=== PATIENT | female | born 1950 | race Caucasian/White ===

== ENCOUNTER 2018-11-04 08:29 | Outpatient (CLI) | payer MEDICARE | END 2018-11-04 08:30 | disposition home or self-care (01) | LOC: BICMAMMO 08:29 | PROVIDERS: ATTEND Obstetrics & Gynecology | DX: Z12.31 Encounter for screening mammogram for malignant neoplasm of breast (principal); R92.1 Mammographic calcification found on diagnostic imaging of breast; Z85.41 Personal history of malignant neoplasm of cervix uteri | CPT/HCPCS: 77063; 77067 ==

== ENCOUNTER 2019-03-03 13:02 | Outpatient (CLI) | payer MEDICARE ==
--- NOTE | 2019-03-03 13:58 | ULT ---
Exam: Bilateral renal ultrasound HISTORY: Possible renal calculi. Hyperparathyroidism. COMPARISON: None FINDINGS: Right kidney: Exophytic hypoechoic focus in the mid right renal cortex measuring 2.3 X 2.3 x 1.9 cm i s incompletely evaluated. The possibility of a solid renal mass cannot be excluded. No hydronephrosis. Ill-defined anechoic focus in the right renal pelvis may represent a parapelvic cyst, measuring 1.2 x 1.2 x 1.3 cm. No hydronephrosis Right kidney measurements: 9.6 x 4.9 x 4.7 cm. Left kidney: Normal cortical echotexture. No hydronephrosis Left kidney measurements 5.0 x 5.3 x 10.4 cm. Urinary bladder: Normal mucosa. IMPRESSION: 1. No hydronephrosis 2. Hypoechoic exophytic lesion emanating from the right kidney, possibly solid mass. Better interroga tion with abdomen MRI or renal mass protocol CT is recommended. CODE T
--- NOTE | 2019-03-03 15:30 | ULT ---
THYROID ULTRASOUND: Date: 03/03/19 INDICATION: Hypothyroidism. FINDINGS: Both lobes of the thyroid are homogeneous. Both lobes have normal size and appearance. There is no ev idence of thyroid mass or nodule. Right lobe measures 3.6 x 1.0 x 1.0 cm. Left lobe measures 3.5 x 1.0 x 1.0 cm. IMPRESSION: Unremarkable thyroid ultrasound. POS: [facility]
== END 2019-03-03 13:03 | disposition home or self-care (01) ==
LOC: BICULT 13:02
PROVIDERS: ATTEND Family Medicine
DX: E03.9 Hypothyroidism, unspecified (principal); E21.3 Hyperparathyroidism, unspecified; N28.89 Other specified disorders of kidney and ureter
CPT/HCPCS: 76536; 76770

== ENCOUNTER 2019-03-18 08:58 | Outpatient (CLI) | payer MEDICARE ==
[2019-03-18] MEDS ORDERED: Gadobenate Dimeglumine 529 MG/1 ML (20ML VIAL) ONE (09:00)
--- NOTE | 2019-03-18 12:10 | MRI ---
EXAM: MRI of the abdomen without and with contrast COMPARISON: Renal ultrasound 03/03/2019 HISTORY: Right renal mass seen on ultrasound TECHNIQUE: Multiplanar multi sequence MR images were taken of the abdomen without and with IV contras t. An MRCP was performed. FINDINGS: Liver: Small nonenhancing foci of high T2 signal in the liver measuring up to 1.1 cm in size represen t cysts. No intrahepatic ductal dilatation. Normal signal without dropout on out of phase images. Gallbladder: No filling defects or gallbladder wall thickening. Common bile duct: Normal caliber without filling defects Adrenal glands: Unremarkable. Kidneys: A well-circumscribed nonenhancing focus of high T2 signal in the midportion of the right kid yessy measuring 2.2 cm in size represents a simple cyst. No left renal abnormality. Spleen: Unremarkable. Pancreas: Unremarkable. Retroperitoneum: No enlarged lymph nodes Bones: No marrow signal abnormality. IMPRESSION: 1. Right renal cyst 2. Hepatic cysts
== END 2019-03-18 08:59 | disposition home or self-care (01) ==
LOC: SCSMRI 08:58
PROVIDERS: ATTEND Family Medicine
DX: R19.00 Intra-abdominal and pelvic swelling, mass and lump, unspecified site (principal); N28.1 Cyst of kidney, acquired; K76.89 Other specified diseases of liver
CPT/HCPCS: 74183; A9577

== ENCOUNTER 2019-10-07 07:11 | Emergency (ER) | payer MEDICARE ==
--- NOTE | 2019-10-07 07:42 | RAD ---
Radiograph right leg tibia-fibula 2 views: DATE: 10/07/2019 HISTORY: 69-year-old female with right leg pain FINDINGS: No fracture of the tibia or fibula identified. Focal osteopenia of lateral malleolus, incompletely ev aluated. IMPRESSION: No fracture.
--- NOTE | 2019-10-07 07:44 | RAD ---
Exam: XR Femur Rt 2 View STANDARD HISTORY: Right lower extremity pain. COMPARISON: None FINDINGS: Postsurgical changes related to internal fixation proximal right femur are noted. A intramedullary ro d with distal interlocking screws and dynamic compression screw transfix the proximal right femur. No hardware complication is seen. No fracture or dislocation is identified. No other acute osseous ab normality. IMPRESSION: No acute osseous abnormality is identified.
--- NOTE | 2019-10-07 08:18 | ULT ---
ULTRASOUND DOPPLER DUPLEX VENOUS RIGHT LOWER EXTREMITY: DATE: 10/07/2019 HISTORY: 69-year-old female with right lower extremity pain. TECHNIQUE: Grayscale, color-flow, and spectral analysis, of major veins of right lower extremity. FINDINGS: There is demonstration of blood flow with normal compressibility, of the right common femoral, profun da femoral, greater saphenous, femoral, popliteal, and posterior tibial, veins. IMPRESSION: Negative. No deep venous thrombosis of right lower extremity.
== END 2019-10-07 09:00 | disposition home or self-care (01) ==
LOC: ERS 07:11
DX: M79.661 Pain in right lower leg (principal); M25.561 Pain in right knee; R60.0 Localized edema

== ENCOUNTER 2020-01-06 13:51 | Outpatient (CLI) | payer MEDICARE ==
--- NOTE | 2020-01-06 16:04 | MMO ---
Bilateral MAMMO Bilat Screen [facility]. CLINICAL HISTORY: Patient is 69 years old and is seen for screening. The patient has no family history of breast cancer. The patient has a history of cervical cancer. VIEWS: The views performed were: bilateral craniocaudal with tomosynthesis and bilateral mediolateral oblique with tomosynthesis. FILMS COMPARED: The present examination has been compared to prior imaging studies performed at [facility] on 11/21/2014, 01/03/2016, 01/27/2017 and 11/04/2018. This study has been interpreted with the assistance of computer-aided detection. MAMMOGRAM FINDINGS: There are scattered fibroglandular densities. Benign calcifications are noted bilaterally. There are no suspicious masses, suspicious calcifications, or new areas of architectural distortion. IMPRESSION: THERE IS NO MAMMOGRAPHIC EVIDENCE OF MALIGNANCY. A ROUTINE FOLLOW-UP MAMMOGRAM IN 1 YEAR IS RECOMMENDED. THE RESULTS OF THIS EXAM WERE SENT TO THE PATIENT. ACR BI-RADS Category 2 - Benign finding MAMMOGRAPHY NOTE: 1. A negative mammogram report should not delay a biopsy if a dominant of clinically suspicious mass is present. 2. Approximately 10% to 15% of breast cancers are not detected by mammography. 3. Adenosis and dense breasts may obscure an underlying neoplasm. Reported by: GABO MOYER MD Electonically Signed: [id number]
== END 2020-01-06 13:52 | disposition home or self-care (01) ==
LOC: BICMAMMO 13:51
PROVIDERS: ATTEND Family Medicine
DX: Z12.31 Encounter for screening mammogram for malignant neoplasm of breast (principal); Z85.41 Personal history of malignant neoplasm of cervix uteri
CPT/HCPCS: 77063; 77067

== ENCOUNTER 2020-07-14 13:28 | Outpatient (CLI) | payer MEDICARE ==
--- NOTE | 2020-07-14 14:51 | ULT ---
THYROID ULTRASOUND INDICATION: Hyperparathyroidism TECHNIQUE: Grayscale and color Doppler images were obtained of the thyroid gland. COMPARISON: Prior exam dated March 03, 2019 FINDINGS: Right thyroid lobe: The right thyroid lobe measures 3.6 x 0.7 x 0.9 cm. Thyroid isthmus: The thyroid isthmus measures 0.21 cm. Left thyroid lobe: The left thyroid lobe measures 3.5 x 1.5 x 0.96 cm. IMPRESSION: 1. No focal thyroid lesion demonstrated.
--- NOTE | 2020-07-14 14:53 | ULT ---
BILATERAL CAROTID DUPLEX ULTRASOUND: HISTORY: Syncope TECHNIQUE: Grayscale, color-flow and spectral Doppler ultrasound imaging of the extracranial carotid artery syst ems and vertebral arteries was performed bilaterally. FINDINGS: There is mild atherosclerotic plaque involving the proximal ICAs and distal left CCA. The peak systolic velocity in the right ICA measures 91.0 cm/s. The peak systolic velocity in the ri ght CCA measures 98.2 cm/s. The peak systolic velocity in the left ICA measures 96.2 cm/s. The peak systolic velocity in the l eft CCA measures 101.0 cm/s. The right IC/CC ratio is0.93. The left IC/CC ratio is 0.95. Vertebral flow: antegrade, bilaterally. . IMPRESSION: No hemodynamically significant stenosis of Both ICAs.
== END 2020-07-14 13:29 | disposition home or self-care (01) ==
LOC: ULT 13:28 → BICULT 13:29
PROVIDERS: ATTEND Family Medicine
DX: E21.3 Hyperparathyroidism, unspecified (principal); R55 Syncope and collapse; I07.1 Rheumatic tricuspid insufficiency
CPT/HCPCS: 76536; 93306; 93880

== ENCOUNTER 2020-08-14 08:19 | Outpatient (CLI) | payer MEDICARE ==
--- NOTE | 2020-08-14 13:16 | NM ---
Radionucleotide parathyroid scan with SPECT imaging HISTORY: Hyperthyroidism. FINDINGS: Physiologic uptake of radiotracer within the head and neck. Submandibular glands are somewh at prominent. Delayed images show mild to moderate persistent uptake in the thyroid gland. No abnormal areas radiotracer uptake are apparent near the thyroid bed or in the upper mediastinum. IMPRESSION : No scintigraphic evidence of parathyroid adenoma.
== END 2020-08-14 08:20 | disposition home or self-care (01) ==
LOC: NM 08:19
PROVIDERS: ATTEND Family Medicine
DX: E21.3 Hyperparathyroidism, unspecified (principal)
CPT/HCPCS: 78072; A9500

== ENCOUNTER 2020-10-10 22:13 | Inpatient (IN) | payer MEDICARE ==
[~2020-10-10 22:13] MED LIST: Iopamidol-370 76% 500 ML 1 ML ONE
[2020-10-10] MEDS ORDERED: Acetaminophen 500 MG TAB ONE (22:29)
[2020-10-10 22:59] LABS: Hemoglobin 13.3 g/dL (12.0-16.0); Mean Corpuscular HGB CONC 33.5 g/dL (32.0-36.0); Mean Corpuscular Hemoglobin 31.6 pg (27.0-31.0); Mean Corpuscular Volume 94.4 fL (78.0-98.0); Mean Platelet Volume 9.3 fL (7.4-10.4); Platelet Count 130 thou/uL (130-400); RBC Distribution Width 13.5 % (11.5-14.5); Red Blood Cell (RBC) Count 4.22 mill/uL (4.20-5.40); White Blood Cell (WBC) Count 8.4 thou/uL (4.8-10.8)
[2020-10-10 23:03] LABS: Bacteria/HPF 1+ HPF (None Seen); Bilirubin Negative (Negative); Blood, Urine Negative (Negative); Clarity Clear (Clear); Glucose, Urine (Dipstick) Normal (Negative); Ketone, Urine Negative (Negative); Leukocyte 25 Leu/uL (Negative); Nitrite 2+ (Negative); Protein, Urine (Dipstick) Negative (Neg-Trace); RBC/HPF 0-3 HPF (0-3); Specific Gravity, Urine 1.014 (1.002-1.036); Urobilinogen Normal mg/dL (Less than 2); WBC/HPF 0-3 HPF (0-3); pH, Urine 5.5 (5.0-9.0)
[2020-10-10] MEDS ORDERED: Morphine 4 MG/ML VIAL ONE (23:06)
[2020-10-10] MEDS ORDERED: Ondansetron PF 4 MG/2 ML Vial ONE (23:06)
[2020-10-10 23:14] LABS: Band 17 % (5-11); Lymphocytes 13 % (21-51); MDiff Complete? YES; Monocytes 3 % (0-10); Neutrophil 67 % (42-75)
[2020-10-10 23:16] LABS: ALT (SGPT) 18 U/L (8-55); AST (SGOT) 12 U/L (5-34); Albumin 3.9 g/dL (3.4-4.8); Alkaline Phosphatase 52 U/L (40-110); Anion Gap 18 mmol/L (10-20); BUN (Urea Nitrogen) 19 mg/dL (9.8-20.1); Bilirubin, Total 0.7 mg/dL (0.2-1.2); Calc. Creatinine Clearance 0 mL/min (70-130); Calcium 8.4 mg/dL (7.8-10.44); Carbon Dioxide 21 mmol/L (23-31); Chloride 105 mmol/L (98-107); Globulin 2.5 g/dL (2.4-3.5); Glucose 105 mg/dL (83-110); Potassium 3.9 mmol/L (3.5-5.1); Protein, Total 6.4 g/dL (6.0-8.3); Sodium 140 mmol/L (136-145)
[2020-10-11] MEDS ORDERED: cefTRIAXone\\ROCEPHIN 2 GM VIAL ONE (00:34)
[2020-10-11] MEDS ORDERED: Vancomycin 1 GM/200 ML BAG ONE (01:50)
[2020-10-11] MEDS ORDERED: Ondansetron PF 4 MG/2 ML Vial IVP PRN (02:31)
[2020-10-11] MEDS ORDERED: Ondansetron ODT 4 MG TAB PO PRN (02:31)
[2020-10-11] MEDS ORDERED: Acetaminophen 325 MG TAB PO PRN (02:31)
[2020-10-11] MEDS ORDERED: Piperacillin/Tazobactam 3.375 GM in Sodium Chloride 0.9% 100 ML IVPB SCH (03:30)
--- NOTE | 2020-10-11 03:49 | HP ---
PRIMARY CARE PHYSICIAN: Dr. Bret Burnett. CHIEF COMPLAINT: Right flank pain. HISTORY OF PRESENT ILLNESS: The patient is a 70-year-old female with a past medical history significant for shingles and postherpetic neuralgia, who presents to the emergency department for the above complaint. The patient reports the acute onset of right flank plain described as sharp, radiating to her mid abdomen, constant, exacerbated and relieved by nothing. She reports associated nausea, vomiting, and chills. She denies hemoptysis, hematochezia/melena. She reports that she has been battling shingles, which are now healing, lesions located to the left back, breast, and chest wall. She has severe, postherpetic neuralgia, and she is taking gabapentin daily for this. She denies any chest pain, heart palpitations, or lightheadedness. She denies any cough, shortness of breath, or wheezing. She denies any dysuria or hematuria. In the ER, the patient presented febrile with a temperature of 101.1 Fahrenheit with normal blood pressure, pulse, respirations, and SpO2 saturation. UA showed 2+ nitrites, 25 leukocyte esterase, and 1+ bacteria. Lactic acid was 2.9, repeat was 4.0. WBC is 8.4. CT abdomen and pelvis, dictation is pending, however, according to ER documentation, the radiologist reported that there is stranding around the right kidney along with a hyperdense lesion that appears more dense than on previous exam in 2019. Concern for hemorrhagic versus infected cyst. The patient was given vancomycin and Rocephin IVPB, along with 2 L normal saline, Tylenol, morphine, and Zofran. She will be admitted to the floor for further evaluation. PAST MEDICAL HISTORY: 1. Shingles. 2. Postherpetic neuralgia. 3. Cervical cancer, treated with surgery. PAST SURGICAL HISTORY: 1. Right leg surgery. 2. Appendectomy. 3. Cholecystectomy. 4. Hysterectomy. SOCIAL HISTORY: She lives with her family. She has no history of smoking, illicit drug use, and drinks alcohol socially. She works as an budget accountant. She walks independently. FAMILY HISTORY: Noncontributory to this case. ALLERGIES: NO KNOWN DRUG ALLERGIES. HOME MEDICATION: Gabapentin 1800 mg p.o. q. day. REVIEW OF SYSTEMS: All review of systems are negative unless otherwise stated in HPI. PHYSICAL EXAMINATION: VITAL SIGNS: Temperature 100.2, BP 104/60, pulse 92, respirations 20, and 96% on room air. CONSTITUTIONAL: Presented febrile, nontoxic in appearance, uncomfortable. HEAD: Atraumatic And normocephalic. EYES: PERRLA. Extraocular muscles intact. Sclerae nonicteric. ENT: Oropharynx is clear. Tacky mucous membranes. No oral lesions. Uvula midline. NECK: Full range of motion. No cervical spinous tenderness. Neck is supple. Trachea midline. RESPIRATORY/CHEST: Respirations even and unlabored. Clear to auscultation. No rhonchi, wheezes, or rales. CARDIOVASCULAR: S1, S2 appreciated. No murmurs, rubs, or gallops. ABDOMEN: Diffusely tender, nondistended. Active bowel sounds. No guarding. No rigidity. No rebound. Negative Rovsing sign. Negative Mckinnye sign. BACK: Full range of motion. She has positive right CVA tenderness. EXTREMITIES: Upper extremities; bilaterally, full range of motion, normal strength, sensation intact, palpable radial pulses. Lower extremities; full range of motion, normal strength, sensation intact, palpable pedal pulses, no swelling. NEUROLOGIC: She is A and O x4. Follows all commands. No focal motor deficits. PSYCHIATRIC: Alert and oriented x3. Denies suicidal or homicidal ideation. LABS AND DIAGNOSTICS: Sodium 140, potassium 3.9, chloride 105, carbon dioxide 21, BUN 19, creatinine 1.12, GFR 48, glucose 105. Lactic acid 2.9, repeat 4.0. Calcium 8.4. Total bilirubin 0.7, AST 12, ALT 18, alkaline phosphatase 52, albumin 3.9. WBC 8.4, hemoglobin 13.3, hematocrit 39.8, platelets 130. UA, 2+ nitrites, 25 leukocyte esterase, 1+ bacteria, there are 7 to [address] of the abdomen and pelvis showed stranding and a more hypertense lesion to the right kidney concerning for infected cyst versus hemorrhagic cyst. No hydronephrosis. This comparison was made to an MRI in 2019 of the right kidney. IMPRESSION: 1. Sepsis without septic shock, suspected. 2. Right infected renal cyst. 3. Lactic acidosis. 4. Shingles. PLAN: The patient presented febrile with stable blood pressure, pulse, and respirations. Lactic acid 2.9, repeat 4.0 with a normal WBC count. UA, 2+ nitrites with leukocyte esterase and 1+ bacteria, however, squamous epithelial cells were present. She was given vancomycin and Rocephin in the ER. We will discontinue Rocephin and start Zosyn. We will continue vancomycin. She was given 2 L normal saline in the ER, we will continue normal saline maintenance IV fluids. Blood and urine cultures are pending. We will consult Urology for concern of infected renal cyst versus hemorrhagic cyst. We will repeat lactic acid. We will make the patient n.p.o. We will provide analgesia p.r.n. We will restart home dose of gabapentin when reconciled by nursing. SCDs for DVT prophylaxis. No pharmacological DVT prophylaxis. Pepcid for GI prophylaxis. CODE STATUS is Full code. Contact is her spouse, Ruben, at [phone]. Discussed the case with my attending physician, Dr. Meadows. Job ID: [id number] MTDD
[2020-10-11 03:59] VITALS: BMI 30.5
[2020-10-11] MEDS: Sodium Chloride 0.9% 1,000 ML IV SCH ×3 (05:02→17:15)
[2020-10-11] MEDS: Morphine 2 MG/ML VIAL SLOW IVP PRN ×3 (05:07→14:46)
[2020-10-11] MEDS: Piperacillin/Tazobactam 3.375 GM in Sodium Chloride 0.9% 100 ML IVPB SCH ×3 (05:14→17:09)
[2020-10-11 07:07] LABS: Lactic Acid 2.3 mmol/L (0.5-2.2)
[2020-10-11 07:11] LABS: Anion Gap 15 mmol/L (10-20); BUN (Urea Nitrogen) 17 mg/dL (9.8-20.1); Calc. Creatinine Clearance 62 mL/min (70-130); Calcium 7.4 mg/dL (7.8-10.44); Carbon Dioxide 18 mmol/L (23-31); Chloride 110 mmol/L (98-107); Glucose 89 mg/dL (83-110); Potassium 3.6 mmol/L (3.5-5.1); Sodium 139 mmol/L (136-145)
[2020-10-11 07:23] LABS: Band 25 % (5-11); Hemoglobin 11.6 g/dL (12.0-16.0); Lymphocytes 7 % (21-51); MDiff Complete? YES; Mean Corpuscular HGB CONC 32.9 g/dL (32.0-36.0); Mean Corpuscular Hemoglobin 32.3 pg (27.0-31.0); Mean Corpuscular Volume 98.1 fL (78.0-98.0); Mean Platelet Volume 9.5 fL (7.4-10.4); Monocytes 3 % (0-10); Neutrophil 65 % (42-75); Platelet Count 94 thou/uL (130-400); Platelet Morphology Comment Appears Decreased; Polychromasia SLIGHT = 2-3 cells (100X) (0-2/hpf); RBC Distribution Width 13.7 % (11.5-14.5)
--- NOTE | 2020-10-11 07:23 | CT ---
CT ABDOMEN AND PELVIS WITH CONTRAST: Date: 10/10/2020 COMPARISON: MRI abdomen dated 03/18/2019. HISTORY: Right-sided flank and abdominal pain. TECHNIQUE: Multiple contiguous axial images were obtained in a CT of the abdomen and pelvis with contrast. Sagit elizabet and coronal reformats were performed. FINDINGS: The gallbladder has been removed. There are small hypodensities in the liver which were found to be c ysts on prior MRI. There is a 3.1 cm lesion emanating from the lateral aspect of the right kidney. Th is was also found to be a cyst on MRI. This appears hyperdense on today's examination, measuring 46 H ounsfield unit value. Stranding changes are also seen adjacent to the right kidney, which was not def initely seen on prior MRI. No hydronephrosis is seen on either side. No calcifications are seen in ei ther kidney. The adrenal glands, spleen, and pancreas are unremarkable. No free air or free fluid seen in the abdomen or pelvis. Scattered diverticula seen in the colon. The patient is status post hysterectomy. The small bowel is normal in caliber. Atherosclerotic calcifica tions are seen in the aorta. No abdominal or pelvic lymphadenopathy seen. Degenerative changes are seen in the spine. The patient has a right hip prosthesis. There are scatter ed calcified granulomas in the lung bases. IMPRESSION: 1. The lesion seen in the right kidney previously described as a cyst on MRI is now hyperdense and s tranding changes are seen adjacent to the kidney. This could represent hemorrhage into the cyst. Alte rnatively, this could represent an infection of the cyst with the stranding changes seen adjacent to the kidney and cysts that were not seen on prior examination. Correlate with white blood cell count. 2. Diverticulosis. POS: [facility]
[2020-10-11] MEDS ORDERED: FLU VACC QS2020-21(65YR UP)/PF 240 MCG/0.7 ML SYRINGE IM ONE (09:00)
[2020-10-11] MEDS: Famotidine/PF 20 mg/2ml Vial SLOW IVP SCH ×2 (09:14→21:08)
[2020-10-11] MEDS: Famotidine 20 MG TAB PO SCH ×2 (09:20→21:08)
[2020-10-11] MEDS ORDERED: Gabapentin 400 MG CAP PO SCH (18:00)
[2020-10-11] MEDS ORDERED: traMADol HCl 50 MG TAB PO PRN (18:44)
[2020-10-11] MEDS: traMADol HCl 50 MG TAB PO PRN (19:03)
--- NOTE | 2020-10-11 19:37 | CON ---
DATE OF CONSULTATION: 10/11/2020 REASON FOR CONSULTATION: 1. Right-sided flank pain. 2. Right renal cyst with possible hemorrhage. HISTORY OF PRESENT ILLNESS: Ms. 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 This is unusual for her. She has had a relatively severe postherpetic neuralgia affecting her left side and the right-sided symptoms are new. She reports pain in her right back, which radiates to the right mid abdomen. This is relatively constant and does not seem to be relieved by anything, although movement seems to make the symptoms worse. The patient does not report gross hematuria. She did have associated nausea, vomiting, and chills associated with onset of symptoms and continues to have some fever today. The patient has had previous imaging studies of the cyst and this shows interval increase in size as well as probable blood within the cyst on CT scanning. PAST MEDICAL HISTORY: 1. Shingles. 2. Postherpetic neuralgia. 3. Cervical cancer, status post hysterectomy. 4. Renal cyst, apparently benign in the past, followed with imaging studies including MRI about 18 months ago. PAST SURGICAL HISTORY: 1. Right leg surgery. 2. Appendectomy. 3. Cholecystectomy. 4. Hysterectomy. SOCIAL HISTORY: The patient is a nonsmoker and does not consume alcohol except for rarely. 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 The patient is able to ambulate without assistance. FAMILY MEDICAL HISTORY: Noncontributory. ALLERGIES: THE PATIENT HAS NO KNOWN DRUG ALLERGIES. HOME MEDICATIONS: Include gabapentin 1800 mg per day. REVIEW OF SYSTEMS: CONSTITUTIONAL: No complaints of weight loss or weight gain. The patient did not report fevers until presenting to the emergency department. PSYCHOLOGICAL: No mental status changes. PULMONARY: Negative for pulmonary disorders. CARDIAC: Negative for cardiac disorders. No complaints of chest pain other than associated with her postherpetic neuralgia. This affects her left side and thoracic dermatomes from 3 to 8. GASTROINTESTINAL: No complaints. GENITOURINARY: No complaints. The patient does have a history of previous cervical cancer. The patient does report right-sided flank pain with associated nausea and vomiting. EXTREMITIES AND MUSCULOSKELETAL: Negative. PHYSICAL EXAMINATION: VITAL SIGNS: Temperature was 101.0 at the time of exam, increasing to 101.7 during the course of the exam, pulse 96, O2 saturation on room air is 93%. HEAD, EYES, EARS, NOSE, AND THROAT: Extraocular movements are intact. Sclerae are anicteric. Oropharynx is clear. NECK: Supple. LUNGS: Clear to auscultation bilaterally. CARDIAC: Regular rate and rhythm without murmur, rub, or gallop. SKIN: The patient has multiple lesions and dermatomes 3 through 8 associated with her postherpetic neuralgia complaints. ABDOMEN: Soft and nontender. BACK: The right-sided costovertebral angle tenderness is present. GENITOURINARY AND PELVIC: Deferred. EXTREMITIES: Appear essentially within normal limits. There is no clubbing, cyanosis, or edema. LABORATORY STUDIES: Urinalysis obtained on 10/10/2020, demonstrated 25 units of leukocyte esterase and was nitrite positive indicating microbiological infection. Urine bacteria was present at 1+ level and squamous epithelial cells at 7 to 10 suggesting possibility of contamination, 0 to 3 red cells and 0 to 3 white cells observed. A culture obtained on the same date shows presumptive E coli. The patient is having urinary frequency. Quantitation on the E coli is greater than 100,000. The patient is currently on piperacillin/tazobactam, Ultram, and vancomycin. Also has available Zofran and morphine for pain symptoms. The patient's home medication of Neurontin has been started. ASSESSMENT: 1. Urinary tract infection with possible pyelonephritis. The patient is on appropriate broad-spectrum coverage for sepsis of unknown origin. Based on the presentation, I think there is a possibility this patient has a pyelonephritis in addition to her cyst changes, which suggests possible bleeding into the system and recommending additional imaging to assess that. The patient's urine culture shows Escherichia coli and she is on piperacillin/tazobactam, which covers this most of the time. I would recommend since this appears to be a pyelonephritis episode, a suitable long course, which would be 14 days based on upper tract findings. This would be a complicated urinary tract infection. The patient could be transitioned to oral antibiotics as soon as a sensitivity is known. 2. Renal cyst with hemorrhage. This simply deserves observational care. CT scan imaging tonight to evaluate for further progression of bleeding into the cyst, which may be associated with the patient's pain symptoms, though pyelonephritis could be the actual cause of the pain symptoms. 3. Concerns for surgical intervention at present time. No surgery is entertained for this patient. 4. Followup: This patient may follow up in my office and a 2-week followup appointment has been scheduled for her. TIME SPENT: Over 70 minutes of initial evaluation, consultation, assessment time was spent in assessment of this patient today including review of multiple imaging studies. Job ID: [id number]
--- NOTE | 2020-10-11 20:04 | CT ---
CT ABDOMEN WTIHOUT CONTRAST: 10/11/20 PROVIDED CLINICAL HISTORY: Follow-up right renal mass. FINDINGS: Comparison is made with the examination performed earlier same date. The previously described 3 cm almost entirely exophytic mass arising from the lateral margin of the r ight kidney is redemonstrated. This demonstrates Hounsfield units on precontrast imaging of approxima tely 50, suggesting blood products. Though not preformed concurrently with the CT examination and rod s difficult to directly compare, the Hounsfield units of this mass on postcontrast imaging was approx imately 66. This could indicate enhancement in addition to blood products. The surrounding fat stran ding changes previously described persists without significant interval change. The solid abdominal organs demonstrate an otherwise unremarkable unenhanced CT appearance. There is f luid density present within the colon, which can be seen in a diarrheal illness. There is development of bilateral pleural fluid with adjacent subsegmental atelectatic change. The osseous structures demonstrate no concerning lytic or blastic lesions. IMPRESSION: 3 cm exophytic hemorrhagic right renal mass with findings equivocal for enhancement. A solid renal ma ss is not excluded. POS: [facility]
[2020-10-11] MEDS ORDERED: Vancomycin 1.5 GRAM/300 ML BAG 1.5 GM in Premix Bag 1 BAG IVPB SCH (21:00)
[2020-10-12] MEDS: Piperacillin/Tazobactam 3.375 GM in Sodium Chloride 0.9% 100 ML IVPB SCH ×3 (00:35→11:20)
[2020-10-12] MEDS ORDERED: Vancomycin 1 GM in Premix Bag 1 BAG IVPB SCH (01:00)
[2020-10-12] MEDS: traMADol HCl 50 MG TAB PO PRN ×2 (03:51→11:19)
[2020-10-12] MEDS: Sodium Chloride 0.9% 1,000 ML IV SCH ×2 (06:02→08:53)
[2020-10-12] MEDS: Famotidine 20 MG TAB PO SCH (08:53)
[2020-10-12] MEDS: Famotidine/PF 20 mg/2ml Vial SLOW IVP SCH (08:53)
[2020-10-12] MEDS ORDERED: Gabapentin 300 MG CAP PO SCH (09:00)
[2020-10-12 12:23] VITALS: BP 106/57; TEMP 98.8
--- NOTE | 2020-10-12 13:04 | PDOC.DS.DS ---
Provider - Provider Date of Admission: 10/11/20 02:02 Date of Discharge: 10/12/20 Admitting Provider: Beau Meadows MD Consultations: Urology (Dr. Mark) Primary Care Physician: Bret Burnett MD Course - Hospital Course Hospital Course: Discharge diagnoses: 1. Urinary tract infection 2. Pyelonephritis 3. Renal cyst with hemorrhage 4. Acute kidney injury Hospital course: Patient is a pleasant 68-year-old lady who was admitted to the hospital on October 11, 2020 for urinary tract infection, pyelonephritis and hemorrhagic renal cyst. She was treated with intravenous antibiotics and pain medications. She improved clinically. Urine cultures grew E. coli that was resistant to ampicillin and gentamicin but was otherwise pansensitive. She is being discharged home on 2 weeks of antibiotics. Many thanks for allowing me to participate in your patient's care. Please feel free to contact me with any questions or concerns. Discharge destination: Home Total amount of time spent coordinating this discharge: 20 minutes Resuscitation Status: 10/11/20 02:31 Resuscitation Status Routine Co-Sign Provider: Resuscitation Status: FULL: Full Resuscitation Discussed with: patient - Labs Lab Results: 10/11/20 06:36 10/11/20 06:36 Abnormal Lab Results - Last 48 hrs 10/10/20 22:33: Carbon Dioxide 21 L, Creatinine 1.12 H 10/10/20 22:33: MCH 31.6 H, Band Neuts % (Manual) 17 H, Lymphocytes % (Manual) 13 L 10/10/20 22:33: Lactic Acid 2.9 H 10/10/20 22:43: Urine Nitrite 2+ A, Ur Leukocyte Esterase 25 A, Ur Squamous Epith Cells 7-10 A, Urine Bacteria 1+ A 10/11/20 01:24: Lactic Acid 4.0 H 10/11/20 06:36: Chloride 110 H, Carbon Dioxide 18 L, Calcium 7.4 L 10/11/20 06:36: WBC 12.0 H, RBC 3.60 L, Hgb 11.6 L, Hct 35.4 L, MCV 98.1 H, MCH 32.3 H, Plt Count 94 L, Band Neuts % (Manual) 25 H, Lymphocytes % (Manual) 7 L, Plt Morphology Comment Appears Decreased L 10/11/20 06:36: Lactic Acid 2.3 H Microbiology - Entire Visit 10/10/20 22:33 Venous blood - Left Arm Blood Culture - Preliminary NO GROWTH AT 48 HOURS 10/10/20 22:44 Venous blood - Right Arm Blood Culture - Preliminary NO GROWTH AT 48 HOURS 10/10/20 22:43 Urine voided Urine Culture - Final Escherichia coli - Physical Exam Vitals: Vital Signs (12 hours) Temp Pulse Resp BP Pulse Ox 10/12/20 12:14 98.8 F 94 16 106/57 L 93 L 10/12/20 07:42 99.2 F 87 20 106/52 L 93 L 10/12/20 03:57 98.3 F 95 16 128/56 L 93 L Weight Weight 178 lb Physical Exam: The patient was seen and examined on the day of discharge. Patient denies chest pain or shortness of breath. Vital signs are stable. S1 and S2 are heard. Lungs are clear to auscultation bilaterally. Plan - Discharge Medications Prescriptions: Ciprofloxacin [Cipro] 500 mg PO BID #28 tab traMADol HCl [Tramadol HCl] 50 mg PO TID PRN #15 tablet PRN Reason: Pain Home Medications: Medication Instructions Recorded Confirmed Type Gabapentin [Neurontin] 1,200 mg PO QPM-WM 10/11/20 10/11/20 History Gabapentin [Neurontin] 600 mg PO QAM 10/11/20 10/11/20 History diphenhydrAMINE HCl [Benadryl 1 tab PO PRN PRN 10/11/20 10/11/20 History Allergy] Ciprofloxacin [Cipro] 500 mg PO BID #28 tab 10/12/20 Rx traMADol HCl [Tramadol HCl] 50 mg PO TID PRN #15 tablet 10/12/20 Rx Allergies: No Known Allergies Allergy (Verified 10/11/20 03:59) - Discharge Instructions Activity:: Activity as Tolerated Nourishment:: Regular Diet - Follow up Plan Referrals: Yovani Mark MD [Active] - 10/24/20 3:30 pm Bret Burnett MD [Primary Care Provider] - 3 Days Disposition: HOME Quality - Care Measures CORE MEASURES:: N/A
[2020-10-12] MEDS ORDERED: Gabapentin 400 MG CAP PO SCH (17:00)
== END 2020-10-12 13:55 | disposition home or self-care (01) | DRG 872 ==
LOC: ERS 22:13 → ERHOLD 10-11 02:02 → 3SE 10-11 03:31
PROVIDERS: ADMIT Student in an Organized Health Care Education/Training Program; ATTEND Internal Medicine
DX: A41.51 Sepsis due to Escherichia coli [E. coli] (principal); N12 Tubulo-interstitial nephritis, not specified as acute or chronic; Z16.11 Resistance to penicillins; B02.29 Other postherpetic nervous system involvement; E87.2 Acidosis; N17.9 Acute kidney failure, unspecified; N28.1 Cyst of kidney, acquired; Z20.828 Contact with and (suspected) exposure to other viral communicable diseases; B02.9 Zoster without complications; Z90.49 Acquired absence of other specified parts of digestive tract; Z90.710 Acquired absence of both cervix and uterus
CPT/HCPCS: 36415; 74150; 74177; 80048; 80053; 81003; 81015; 83605; 85025; 87040; 87077; 87086; 87186; J0696; J2270; J2405; J2543; J3370; J3490; Q0162; Q9967; S0028

== ENCOUNTER 2022-10-09 13:44 | Outpatient (CLI) | payer MEDICARE | END 2022-10-09 13:45 | disposition home or self-care (01) | LOC: BICMAMMO 13:44 | PROVIDERS: ATTEND Family Medicine | DX: Z12.31 Encounter for screening mammogram for malignant neoplasm of breast (principal); Z85.820 Personal history of malignant melanoma of skin; Z85.41 Personal history of malignant neoplasm of cervix uteri | CPT/HCPCS: 77063; 77067 ==

== ENCOUNTER 2023-08-08 13:01 | Emergency (ER) | payer OTHER, MEDICARE ==
[2023-08-08] MEDS ORDERED: Acetaminophen 500 MG TAB ONE (15:36)
== END 2023-08-08 15:53 | disposition home or self-care (01) ==
LOC: ERS 13:01
DX: R51.9 Headache, unspecified (principal)
CPT/HCPCS: 70450; 72125

== ENCOUNTER 2023-12-12 12:39 | Outpatient (CLI) | payer MEDICARE | END 2023-12-12 12:40 | disposition home or self-care (01) | LOC: BICMAMMO 12:39 | PROVIDERS: ATTEND Family Medicine | DX: Z12.31 Encounter for screening mammogram for malignant neoplasm of breast (principal); Z85.820 Personal history of malignant melanoma of skin; Z85.41 Personal history of malignant neoplasm of cervix uteri | CPT/HCPCS: 77063; 77067 ==

== ENCOUNTER 2025-06-14 09:11 | Outpatient (CLI) | payer MEDICARE | END 2025-06-14 09:12 | disposition home or self-care (01) | LOC: BICRAD 09:11 | PROVIDERS: ATTEND Family Medicine | DX: R06.02 Shortness of breath (principal) | CPT/HCPCS: 71046; 82306; 82330; 87086 ==